=== PATIENT | female | born 1980 | race Two or more races ===

== ENCOUNTER 2022-02-21 10:51 | Emergency (ER) | payer OTHER ==
[~2022-02-21] VITALS: Ht 149.9 cm; Wt 52.2 kg
[2022-02-21] MEDS ORDERED: CLONAZEPAM1 M1 PO (11:07)
[2022-02-21] MEDS ORDERED: ZOLOFT100 MG PO (11:07)
== END 2022-02-21 15:20 | disposition home or self-care (01) ==
LOC: ER 10:51
DX: J06.9 Acute upper respiratory infection, unspecified (principal); Z20.822 Contact with and (suspected) exposure to COVID-19; Z88.8 Allergy status to other drugs, medicaments and biological substances